=== PATIENT | male | born 1990 | race African-American/Black ===

== ENCOUNTER 2018-11-19 17:16 | Emergency (ER) | payer BC ==
[2018-11-19] MEDS ORDERED: ACETAMINOPHEN 325 MG TABLET PO ONE (17:26)
--- NOTE | 2018-11-19 17:29 | ER Document Report ---
ED Medical Screen (RME) - General Chief Complaint: Testicular Swelling Stated Complaint: TESTICULAR SWELLING Time Seen by Provider: 11/19/18 17:25 Primary Care Provider: LOU PEREYRA MD [Primary Care Provider] - Follow up as needed Notes: Patient is a 28-year-old male who presents to the emergency department with a chief complaint of left scrotal swelling. His symptoms started 2 days ago. The swelling is in his left upper groin. He has not taken any medications to help with the pain. Denies any past medical history. Exam: Exam done with CATHI Doe at bedside. Swelling to left upper scrotal area. I have greeted and performed a rapid initial assessment of this patient. A comprehensive ED assessment and evaluation of the patient, analysis of test results and completion of medical decision making process will be conducted by an additional ED providers. - Related Data Allergies/Adverse Reactions: No Known Allergies Allergy (Verified 11/19/18 17:20) Past Medical History - Social History Drug Abuse: Marijuana Physical Exam - Vital signs Vitals: Temp Pulse Resp BP Pulse Ox 100.5 F H 97 16 137/99 H 99 11/19/18 17:18 11/19/18 17:18 11/19/18 17:18 11/19/18 17:18 11/19/18 17:18 Course - Vital Signs Vital signs: Temp Pulse Resp BP Pulse Ox 100.5 F H 97 16 137/99 H 99 11/19/18 17:18 11/19/18 17:18 11/19/18 17:18 11/19/18 17:18 11/19/18 17:18 Doctor's Discharge - Discharge Referrals: LOU PEREYRA MD [Primary Care Provider] - Follow up as needed
[2018-11-19 17:51] LABS: APPEARANCE,URINE SLIGHTLY-CLOUDY; BILIRUBIN,URINE NEGATIVE (NEGATIVE); COLOR,URINE AMBER; GLUCOSE, URINE NEGATIVE (NEGATIVE); KETONES,URINE NEGATIVE (NEGATIVE); LEUKOCYTE ESTERASE,URINE NEGATIVE (NEGATIVE); NITRITE,URINE NEGATIVE (NEGATIVE); PROTEIN,URINE 30 mg/dL (NEGATIVE); URINE SPECIFIC GRAVITY 1.026
--- NOTE | 2018-11-19 18:38 | RADIOLOGY REPORT (SQ) ---
EXAM DESCRIPTION: U/S SCROTUM W/DOPPLER COMPLETED DATE/TIME: 11/19/2018 6:26 pm REASON FOR STUDY: left scrotal swelling COMPARISON: None. TECHNIQUE: Static and realtime davidson scale imaging of the scrotum and testes. Selected color Doppler and spectral images recorded to document blood flow. LIMITATIONS: None. FINDINGS: RIGHT: TESTICLE: Normal size, 4.2 x 2.5 x 1.9 cm. Normal echotexture. Normal blood flow. No mass. EPIDIDYMIS: 1.4 x 0.7 x 1 cm. Normal. HYDROCELE OR VARICOCELE: No. HERNIA OR EXTRA-TESTICULAR MASS: No. OTHER: No other significant finding. LEFT: TESTICLE: Normal size, 4.1 x 2.7 x 1.9 cm. . Normal echotexture. Normal blood flow. No mass. EPIDIDYMIS: Slightly larger than the right, 1.4 x 1.6 x 1.2 cm. HYDROCELE OR VARICOCELE: Possible left varicocele. HERNIA OR EXTRA-TESTICULAR MASS: No. OTHER: No other significant finding. IMPRESSION: Possible left varicocele. The left epididymis is larger than the right. Correlate for epididymitis. There is no testicular torsion. TECHNICAL DOCUMENTATION: JOB ID: [id number] [employer]- All Rights Reserved Reading location - IP/workstation name: [email or web address]
[2018-11-19 19:15] LABS: CHLAM PCR NOT DETECTED (NOT DETECT)
--- NOTE | 2018-11-19 19:15 | ER Document Report ---
ED General - General Chief Complaint: Testicular Swelling Stated Complaint: TESTICULAR SWELLING Time Seen by Provider: 11/19/18 17:25 Primary Care Provider: BENNIE VALENZUELA MD [NO LOCAL MD] - Follow up in 1 week (for urology follow up) LOU PEREYRA MD [Primary Care Provider] - Follow up in 1 week TRAVEL OUTSIDE OF THE [place] IN LAST 30 DAYS: No - HPI Notes: 28-year-old male to the emergency department with complaints of left scrotal pain and swelling for the past 3 days. He denies any blunt force trauma. He denies any penile discharge. He is sexually active and only intermittently uses protection. He denies any fevers chills, nausea, vomiting, diarrhea, chest pain, shortness of breath, abdominal pain. He does admit to previous history of STDs but is not sure what he had. Denies any other complaints. - Related Data Allergies/Adverse Reactions: No Known Allergies Allergy (Verified 11/19/18 17:20) Past Medical History - General Information source: Patient - Social History Smoking Status: Current Every Day Smoker Frequency of alcohol use: Social Drug Abuse: Marijuana Family History: Reviewed & Not Pertinent Patient has suicidal ideation: No Patient has homicidal ideation: No Review of Systems - Review of Systems Constitutional: Fever. denies: Chills EENT: No symptoms reported Cardiovascular: denies: Chest pain, Syncope Respiratory: denies: Cough, Short of breath Gastrointestinal: denies: Abdominal pain, Diarrhea, Nausea, Vomiting Male Genitourinary: See HPI, Testicular pain Musculoskeletal: denies: Back pain Skin: See HPI Neurological/Psychological: No symptoms reported -: Yes All other systems reviewed and negative Physical Exam - Vital signs Vitals: Temp Pulse Resp BP Pulse Ox 100.5 F H 97 16 137/99 H 99 11/19/18 17:18 11/19/18 17:18 11/19/18 17:18 11/19/18 17:18 11/19/18 17:18 Interpretation: Febrile - General General appearance: Appears well, Alert - HEENT Head: Normocephalic Eyes: Scleral icterus Pupils: PERRL - Respiratory Respiratory status: No respiratory distress Chest status: Nontender Breath sounds: Normal Chest palpation: Normal - Cardiovascular Rhythm: Regular Heart sounds: Normal auscultation Murmur: No - Abdominal Inspection: Normal Distension: No distension Bowel sounds: Normal Tenderness: Nontender Organomegaly: No organomegaly - Genitourinary Tenderness: Epididymis tender Cremasteric reflex: Normal Scrotum: Swelling Notes: There is tenderness to palpation over the left epididymis with noted mild edema. There is no erythema or evidence of skin infection. There is no penile discharge. Patient is not circumcised. Chaperoned by ana Fierro. - Neurological Neuro grossly intact: Yes Cognition: Normal Orientation: AAOx4 Ashley Coma Scale Eye Opening: Spontaneous Spruce Coma Scale Verbal: Oriented Ashley Coma Scale Motor: Obeys Commands Ashley Coma Scale Total: 15 Speech: Normal Motor strength normal: LUE, RUE, LLE, RLE Sensory: Normal - Psychological Associated symptoms: Normal affect, Normal mood - Skin Skin Temperature: Warm Skin Moisture: Dry Skin Color: Normal Course - Re-evaluation Re-evalutation: 11/20/18 Scrotum Ultrasound 11/19/18 17:25 IMPRESSION: Possible left varicocele. The left epididymis is larger than the right. Correlate for epididymitis. There is no testicular torsion. Impression: Epididymitis. Noted low grade fever. treated here. Patient with exam findings consistent with epididymitis. Will go ahead and treat with Rocephin and Doxy to cover for possible GC/chlam etiology. Patient agrees with the plan. Urged to return if worse. No sex until completion of Abx. Have partner tested and treated as well. Patient agrees with the plan. - Vital Signs Vital signs: Temp Pulse Resp BP Pulse Ox 99.1 F 89 18 136/82 H 99 11/19/18 19:40 11/19/18 19:40 11/19/18 19:40 11/19/18 19:40 11/19/18 19:40 - Laboratory Laboratory results interpreted by me: 11/19/18 17:20 Urine Protein 30 H Urine Blood MODERATE H Urine Urobilinogen 2.0 H - Diagnostic Test Radiology reviewed: Image reviewed, Reports reviewed Discharge - Discharge Clinical Impression: Epididymitis, Testicular pain, left, Varicocele Condition: Stable Disposition: HOME, SELF-CARE Instructions: Doxycycline ([facility]), Epididymitis ([facility]) Additional Instructions: Take all medicines as prescribed. No sexual intercourse for the next 2 weeks. Have all partners tested. Return if worsening pain, worsening swelling, streaking redness into the groin, inability to keep down your medicines. Follow-up with urologist about epididymitis and varicocele. Prescriptions: Doxycycline Hyclate 100 mg PO BID #28 capsule Ibuprofen [Motrin 800 mg Tablet] 800 mg PO Q8H PRN #30 tab PRN Reason: Forms: Return to Work Referrals: LOU PEREYRA MD [Primary Care Provider] - Follow up in 1 week BENNIE VALENZUELA MD [NO LOCAL MD] - Follow up in 1 week (for urology follow up)
[2018-11-19] MEDS ORDERED: LIDOCAINE 1% INJ-PF (10 MG/ML) 30 ML SDV NEB ONE (19:16)
[2018-11-19] MEDS ORDERED: CEFTRIAXONE INJ 250 MG VIAL IM ONE (19:16)
[2018-11-19 19:56] VITALS: BP 136/82
== END 2018-11-19 19:52 | disposition home or self-care (01) ==
LOC: ER 17:16
DX: I86.1 Scrotal varices (principal); N45.1 Epididymitis; N50.812 Left testicular pain; N50.89 Other specified disorders of the male genital organs; F17.200 Nicotine dependence, unspecified, uncomplicated
CPT/HCPCS: 81001; 87491; 87591; 76870; 93976; J3490; J0696; 96372; 99284